=== PATIENT | female | born 1990 | race Hispanic/Latino ===

== ENCOUNTER → 2024-05-22 | Outpatient (REF) | payer MEDICARE | LOC: US 10:58 | PROVIDERS: ATTEND Nurse Practitioner Family | DX: R74.8 Abnormal levels of other serum enzymes (principal) | CPT/HCPCS: 76705 ==

== ENCOUNTER → 2024-06-20 | Day surgery (SDC) | payer MEDICARE ==
[~2024-06-20] MED LIST: BUPIVACAINE HCL 0.5% INJ 30 ML VIAL INJ ONE; CRESTOR40 MG; DEXAMETHASONE SOD PHOS INJ 4 MG/ML SDV ONE; FENTANYL CITRATE/PF 100MCG/2 ML INJ ONE; GLIPIZIDE5 MG PO; GLYCOPYRROLATE INJ 0.2 MG/ML VIAL ONE; LIDOCAINE HCL 2% LOCAL INJ 5 ML SDV VIAL INJ ONE; METOCLOPRAMIDE HCL 10 MG/2ML VIAL ONE; MIDAZOLAM HCL 2 MG/2 ML VIAL ONE; MOUNJARO5 MG/0.5 M SQ; ONDANSETRON HCL INJ 2MG/ML 2ML 2 MG/ML VIAL ONE; PROPOFOL IV EMULSION 10 MG/ML 20 ML VIAL ONE; ROSUVASTATIN CA10 MG PO; SEVOFLURANE INHAL SOLN 250 ML PEN BTL ONE; SODIUM CHLORIDE 0.9% 250ML 250 ML ONE; SODIUM CHLORIDE 0.9% 500ML 0 ML ONE; TYLENOL EXTRA500 MG PO
[2024-06-20 08:45] LABS: ANION GAP 16.3 mmol/L (8-16); CREATININE, SERUM 0.51 mg/dL (0.57-1.11); POTASSIUM 4.3 mmol/L (3.5-5.1)
[2024-06-20] MEDS: LACTATED RINGER'S 1,000 ML ONE (10:10)
[2024-06-20] MEDS: CEFAZOLIN SODIUM 2 GM ONE (10:11)
[2024-06-20 11:40] VITALS: BP 128/76; PULSE 77; RESP 18; O2SAT 99
== END | disposition home or self-care (01) ==
LOC: OR 06:39
PROVIDERS: ATTEND Podiatrist Foot & Ankle Surgery
DX: S93.325A Dislocation of tarsometatarsal joint of left foot, initial encounter (principal); M24.575 Contracture, left foot; M67.02 Short Achilles tendon (acquired), left ankle; M77.52 Other enthesopathy of left foot and ankle; L03.116 Cellulitis of left lower limb; E78.5 Hyperlipidemia, unspecified; E11.9 Type 2 diabetes mellitus without complications; X58.XXXA Exposure to other specified factors, initial encounter; Z79.84 Long term (current) use of oral hypoglycemic drugs; Z79.899 Other long term (current) drug therapy; Z79.85 Long-term (current) use of injectable non-insulin antidiabetic drugs; Z91.81 History of falling
CPT/HCPCS: 27685; 28615; 36415; 80048; 81025; C1713 ×3; C1734; J0690; J1100; J2003; J2250; J2405; J2704; J2765; J3010; J7050; J7121; J7040